=== PATIENT | female | born 1960 | race Caucasian/White ===

== ENCOUNTER 2022-05-04 10:56 | Emergency (ER) | payer SELFPAY ==
[2022-05-04 11:00] VITALS: BP 190/92; PULSE 103; RESP 18; TEMP 36.4; O2SAT 98
[2022-05-04 11:29] VITALS: BP 190/92; PULSE 103; RESP 18; TEMP 36.4; O2SAT 98
--- NOTE | 2022-05-04 11:53 | ED.EYEPROB ---
HPI - Eye Problem General Chief complaint: Eye Problems <Andie Shelby PA-C - Last Filed: 05/04/22 13:29> Stated complaint: L eye injury <Andie Shelby PA-C - Last Filed: 05/04/22 13:29> Time Seen by Provider: 05/04/22 11:11 <Andie Shelby PA-C - Last Filed: 05/04/22 13:29> Source: patient <Andie Shelby PA-C - Last Filed: 05/04/22 13:29> Mode of arrival: ambulatory <Andie Shelby PA-C - Last Filed: 05/04/22 13:29> Limitations: no limitations <Andie Shelby PA-C - Last Filed: 05/04/22 13:29> History of Present Illness HPI Narrative: This is a 62 year old female that presents to the ER for left eye injury sustained last night. Reports she was trying to open a package of hot dogs and the knife slipped and she stabbed herself in the left eye. She is not up to date on tetanus. Reports since she has had blurry vision, tearing, and redness in the eye. Denies fever or vomiting. <Andie Shelby PA-C - Last Filed: 05/04/22 13:29> Related Data Allergies/adverse reactions: Allergies Allergy/AdvReac Type Severity Reaction Status Date / Time No Known Allergies Allergy Verified 05/04/22 11:03 <Andie Shelby PA-C - Last Filed: 05/04/22 13:29> Review of Systems Review of Systems: CONSTITUTIONAL: Denies fever EYES: Reports visual changes, redness <Andie Shelby PA-C - Last Filed: 05/04/22 13:29> All systems reviewed & are unremarkable except as noted in HPI and below <Andie Shelby PA-C - Last Filed: 05/04/22 13:29> [facility] Past Medical History Medical History: Medical History (Updated 05/04/22 @ 13:29 by Andie Shelby PA-C) No active medical problems <Andie Shelby PA-C - Last Filed: 05/04/22 13:29> Social History Social History: Social History (Updated 05/04/22 @ 11:53 by Andie Shelby PA-C) Smoking status: Current every day smoker <Andie Shelby PA-C - Last Filed: 05/04/22 13:29> Exam Narrative: GENERAL: Well-appearing, well-nourished, and in no acute distress. HEAD: Normocephalic, atraumatic. EYES: PERRLA and EOMI. Left eye with conjunctival injection and tearing. No foreign bodies noted. Pressure on the left is 11, on the right 13. Visual acuity on the left 20/200, on the right 20/100. Positive fluorescein stain uptake with corneal abrasion noted EXTREMITIES: Normal range of motion. No edema. SKIN: Warm, dry, no rash. NEURO: No focal deficits. Alert and oriented x3. PSYCH: Normal mood and affect <Andie Shelby PA-C - Last Filed: 05/04/22 13:29> Course DIE CAST SUPERVISOR/PA Physician Supervision For this patient encounter, I reviewed the DIE CAST SUPERVISOR or PA documentation, treatment plan, and medical decision making <Hang Yi MD - Last Filed: 05/04/22 13:52> Vital Signs Vital signs: Vital Signs Temperature 97.6 F 05/04/22 11:00 Pulse Rate 103 H 05/04/22 11:00 Respiratory Rate 18 05/04/22 11:00 Blood Pressure 190/92 H 05/04/22 11:00 Pulse Oximetry 98 05/04/22 11:00 Oxygen Delivery Room Air 05/04/22 11:00 Temperature 97.6 F 05/04/22 11:29 Pulse Rate 78 05/04/22 13:05 Respiratory Rate 16 05/04/22 13:05 Blood Pressure 164/92 H 05/04/22 13:05 Pulse Oximetry 96 05/04/22 13:05 Oxygen Delivery Room Air 05/04/22 11:29 <Andie Shelby PA-C - Last Filed: 05/04/22 13:29> Vital Signs Temperature 97.6 F 05/04/22 11:00 Pulse Rate 103 H 05/04/22 11:00 Respiratory Rate 18 05/04/22 11:00 Blood Pressure 190/92 H 05/04/22 11:00 Pulse Oximetry 98 07/17/22 11:00 Oxygen Delivery Room Air 05/04/22 11:00 Temperature 97.6 F 05/04/22 11:29 Pulse Rate 78 05/04/22 13:05 Respiratory Rate 16 05/04/22 13:05 Blood Pressure 164/92 H 05/04/22 13:05 Pulse Oximetry 96 05/04/22 13:05 Oxygen Delivery Room Air 05/04/22 11:29 <Hang Yi MD - Last Filed: 05/04/22 13:52> MDM - Eye Problem MDM Narrative Medical decision making narrative
--- NOTE | 2022-05-04 11:55 | PC.NURSE ---
EDP at bedside to assess pt.
[2022-05-04] MEDS: DACRIOSE EYE IRRIGATION 118 ML BOTTLE (12:05)
[2022-05-04] MEDS: FLUORESCEIN SOD 1 MG/STRIP EACH EYE (12:05)
[2022-05-04] MEDS: TETRACAINE HCL 0.5% OPHTH SOLN 4 ML BTL 1 DROP LEFT EYE (12:05)
[2022-05-04] MEDS: TETANUS,DIPHTHERIA,AC PERTUSSIS ADULT (0.5 ML) BOOSTRIX IM (12:28)
[2022-05-04 13:05] VITALS: BP 164/92; PULSE 78; RESP 16; O2SAT 96
--- NOTE | 2022-05-04 13:39 | PC.NURSE ---
Pharmacy contacted for eye ointment.
[2022-05-04] MEDS: ERYTHROMYCIN OPHTH OINTMENT 1 GM TUBE 1 APPLIC LEFT EYE (13:55)
== END 2022-05-04 14:04 | disposition home or self-care (01) ==
PROVIDERS: Emergency Provider Emergency Medicine
DX: S05.02XA Injury of conjunctiva and corneal abrasion without foreign body, left eye, initial encounter (principal); I10 Essential (primary) hypertension; Z23 Encounter for immunization; F17.200 Nicotine dependence, unspecified, uncomplicated; W22.8XXA Striking against or struck by other objects, initial encounter
CPT/HCPCS: 90471; 90715; 99283; A9270